=== PATIENT | male | born 1960 | race Caucasian/White ===

== ENCOUNTER 2016-12-21 22:39 | Emergency (ER) | payer OTHER ==
[~2016-12-21] VITALS: Wt 53.5 kg
[2016-12-22] MEDS ORDERED: morphine 10 MG INJ IM ONE
[2016-12-22] MEDS ORDERED: IBUP-1542 PO (00:28)
[2016-12-22] MEDS ORDERED: OXYC-279 PO (00:28)
[2016-12-22 00:47] VITALS: BP 128/74; PULSE 66; RESP 20
--- NOTE | 2016-12-22 01:04 | ERD ---
ER Documentation Chief Complaint Date/Time DATE: 12/22/16 TIME: 01:01 Chief Complaint Left inguinal Pain Hernia HPI 56-year-old man presents with left inguinal hernia pain similar to previous episodes. He denies any precipitating factors today but has had repeated symptoms over the last few months. He states he was supposed to follow-up with Dr. Johnson and was awaiting a call but did not receive any. Patient denies fevers or chills, no hematuria or dysuria, no vomiting or diarrhea, no chest pain or shortness of breath. ROS All systems reviewed and are negative except as per history of present illness. Medications Home Meds Active Scripts Ibuprofen* (Motrin*) 600 Mg Tab, 600 MG PO Q8 for PAIN AND/OR INFLAMMATION, #30 TAB Prov:JAMARI BROWNING MD 12/22/16 Oxycodone HCl/Acetaminophen (Percocet 5-325 mg Tablet) 1 Each Tablet, 1 EACH PO TID for PAIN LEVEL 6-10, #12 TAB Prov:JAMARI BROWNING MD 12/22/16 Allergies Allergies: Coded Allergies: No Known Allergy (Unverified , 12/07/16) PMhx/Soc Inguinal hernia History of Surgery: No Anesthesia Reaction: No Hx Neurological Disorder: No Hx Respiratory Disorders: No Hx Cardiac Disorders: No Hx Psychiatric Problems: No Hx Miscellaneous Medical Probl: No Hx Alcohol Use: No Hx Substance Use: No Hx Tobacco Use: No Smoking Status: Smoker,current status unk FmHx Family History: No diabetes Physical Exam Vitals Vital Signs Date Time Temp Pulse Resp B/P Pulse Ox O2 Delivery O2 Flow Rate FiO2 12/22/16 00:47 66 20 128/74 99 12/21/16 22:50 98.5 94 20 141/74 99 Physical Exam GENERAL: Well-developed, well-nourished, well-hydrated, moderate discomfort, afebrile HEENT: Moist mucous membranes, pink conjunctiva, no cervical spine tenderness or step-off deformities, no goiter, no jaundice or icterus, extraocular movements intact without pain. No submandibular induration, and no pharyngeal erythema NEURO: Alert and oriented 3, cranial nerves II through XII intact bilaterally, pupils equal round reactive to light, no focal deficits or facial asymmetry, sensation intact distally Strength 5/5 in upper and lower extremities bilaterally CARDIAC: Regular rate and rhythm, no murmurs rubs or gallops LUNGS: Clear bilaterally no wheezing crackles or stridor ABDOMEN: Soft nontender, no guarding, no rigidity, no rebound, no psoas sign no obturator sign. There is a palm sized left inguinal hernia which is soft and minimally tender to touch, no skin erythema or hematoma noted. It is reducible to palpation. SKIN: Warm and dry to touch, no abrasions, contusions, or hematomas, no lacerations, no ecchymosis, no target lesions, and without ulcers EXTREMITIES: No clubbing cyanosis or edema, calves are bilaterally symmetrical, no Homans sign, no popliteal cord sign. Distal pulses equal and bilateral PSYCH: Normal affect without agitation or irritability Results 24 hrs Current Medications Medications (Trade) Dose Ordered Sig/Collins Route PRN Reason Start Time Stop Time Status Last Admin Dose Admin Morphine Sulfate (morphine) 4 mg ONCE ONCE IM 12/22/16 00:00 12/22/16 00:01 DC 12/21/16 23:35 Procedures/MDM I administered morphine 4 mg IM 1 with good control of pain. Surgical consultation was obtained with Dr. Johnson. I spoke to him regarding the patient's presentation and symptomatology he recommended outpatient management and kindly agreed to see the patient in his office in about 1 week. Patient's exam was repeated by me and remained benign, pain is 0/10 Differential diagnoses considered, included but not limited to acute coronary syndrome, pulmonary embolism, aortic dissection, abdominal aortic aneurysm, sepsis, stroke, meningitis, encephalitis, pneumonia, appendicitis, cholecystitis , bowel obstruction, pyelonephritis, nephrolithiasis, cystitis, as well as metabolic, hematologic, and electrolyte abnormalities. As well as abscess, cellulitis, fractures, and dislocations. Patient feels much better at this time, and vital signs are normal, symptoms have improved. I did give strict instructions to return to the ED if symptoms continue or worsen, patient will otherwise follow-up with primary care physician. Patient understood instructions and agreed to plan. Disclaimer: Inadvertent spelling and grammatical errors are likely due to EHR/ dictation software use and do not reflect on the overall quality of patient care. Also, please note that the electronic time recorded on this note does not necessarily reflect the actual time of the patient encounter. Departure Diagnosis: Primary Impression: Inguinal hernia Obstruction and gangrene presence: without obstruction or gangrene Laterality : unilateral Recurrence: recurrent Qualified Code: K40.91 - Unilateral recurrent inguinal hernia without obstruction or gangrene Condition: Good Patient Instructions: Hernia (Inguinal, Ventral, Umbilical) Referrals: EDUARDO JOHNSON MD, DAVID MD Dec 22, 2016 01:04
== END 2016-12-22 00:47 | disposition home or self-care (01) ==
LOC: E/R 22:39
DX: K40.91 Unilateral inguinal hernia, without obstruction or gangrene, recurrent (principal); F17.210 Nicotine dependence, cigarettes, uncomplicated
CPT/HCPCS: 96372; 99284; J2270

== ENCOUNTER 2017-01-03 09:08 | Day surgery (SDC) | payer OTHER ==
[~2017-01-03] VITALS: Ht 162.6 cm; Wt 52.0 kg
[2017-01-03] VITALS (15 sets, daily range): BP systolic 88–125; BP diastolic 55–83; PULSE 60–82; RESP 13–27; Ht 162.6 cm; Wt 52.0 kg
[~2017-01-03 09:08] MED LIST: CEFAZOLIN 2 GM/50 ML (PMX) 50 ML IVPB SCH; IBUP-1542 PO; OXYC-279 PO; ROCURONIUM 50 MG INJ ONE; SOD CHLORIDE 0.9% 1,000 ML IV SCH
[2017-01-03] MEDS ORDERED: HYDR-906 PO (09:54)
[2017-01-03] MEDS ORDERED: CEFAZOLIN 1 GM INJ ONE (10:49)
[2017-01-03] MEDS ORDERED: MIDAZOLAM 1 MG/ML 2 ML INJ ONE (10:49)
[2017-01-03] MEDS ORDERED: FENTAnyl 50 MCG/ML VIAL ONE (10:49)
[2017-01-03] MEDS ORDERED: PROPOFOL 20 ML ONE (10:49)
[2017-01-03] MEDS ORDERED: ROPIVACAINE 0.2% 20 ML VIAL ONE (10:50)
[2017-01-03] MEDS ORDERED: BUPIVACAINE 0.25% (MPF) 30 ML INJ ONE (11:05)
[2017-01-03] MEDS ORDERED: DEXAMETHASONE 4 MG/ML 1 ML INJ ONE (11:27)
[2017-01-03] MEDS ORDERED: METOCLOPRAMIDE 10 MG INJ ONE (11:27)
[2017-01-03] MEDS ORDERED: ONDANSETRON 4 MG INJ ONE (11:27)
[2017-01-03] MEDS ORDERED: KETOROLAC 30 MG INJ ONE (11:27)
[2017-01-03] MEDS ORDERED: BUPIVACAINE 0.25% (MPF) 30 ML INJ INJ ONE (11:37)
[2017-01-03] MEDS ORDERED: POLYMYXIN/BACITRACIN 1L IRRIG IRR ONE (11:37)
[2017-01-03] MEDS ORDERED: SUGAMMADEX SODIUM 200 MG/2 ML VIAL IV ONE (12:00)
--- NOTE | 2017-01-03 12:17 | SIPON ---
Date/Time of Note Date/Time of Note DATE: 01/03/17 TIME: 12:02 Operative Report Preoperative Diagnosis [facility] Postoperative Diagnosis [facility] Operation/Procedure Performed 1. open left inguinal hernia repair with medium ultrapro hernia system mesh 2. therapeutic injection of subcutaneous marcaine cpt code 91206 Surgeon see signature line animal care assistant none Anesthesia: general Estimated blood loss: 0 - 10 ml's Transfusion Required none Specimen none Grafts/Implants none Complications none Won MESA Jan 03, 2017 12:16
[2017-01-03] MEDS ORDERED: morphine (1 MG/ML) 10ML SYRINGE IV PRN ×3 (12:30)
[2017-01-03] MEDS ORDERED: ONDANSETRON 4 MG INJ IV PRN (12:30)
[2017-01-03] MEDS ORDERED: DIPHENHYDRAMINE 50 MG INJ IV PRN (12:30)
[2017-01-03] MEDS ORDERED: hydrALAzine 20 MG INJ IV PRN (12:30)
[2017-01-03] MEDS ORDERED: LABETALOL HCL 20MG INJ IV PRN (12:30)
[2017-01-03] MEDS ORDERED: EPHEDrine SULFATE 50 MG/5 ML SYG IV PRN (12:30)
[2017-01-03] MEDS ORDERED: MEPERIDINE 25 MG INJ IV PRN (12:30)
[2017-01-03] MEDS ORDERED: HYDROCODONE/APAP (5/325) TAB PO ONE (12:30)
[2017-01-03] MEDS ORDERED: FENTAnyl 50 MCG/ML VIAL IV PRN ×3 (12:30)
--- NOTE | 2017-01-03 13:12 | OPR ---
DATE OF OPERATION: 01/03/2017 INDICATION: This is a 56-year-old male with a left inguinal hernia. He requested surgical repair. Risks, alternatives, benefits, and personnel were discussed with the patient. The patient expresses understanding and consents to the operation. PREOPERATIVE DIAGNOSIS: Incarcerated left inguinal hernia. POSTOPERATIVE DIAGNOSIS: Incarcerated left inguinal hernia. OPERATION PERFORMED: 1. Open incarcerated left inguinal hernia repair with medium- sized Ultrapro hernia system mesh. 2. Therapeutic subcutaneous Marcaine injection. SURGEON: Geraldine Julian MD. SPECIMEN: Specimen is none. COMPLICATIONS: None. ESTIMATED BLOOD LOSS: 5 cc. OPERATIVE PROCEDURE: Patient was taken to the OR, and prepped and draped in usual sterile fashion. Surgical time out was performed. IV antibiotics were given. Left inguinal oblique incision was made with a 10 blade. Dissection cautery was carried down to the external oblique fascia. The external oblique fascia was opened up with a 15 blade. This incision was extended medially, inferiorly, laterally, superiorly with Metzenbaum scissors. The cord structures identified and encircled with a Felton drain. An indirect hernia was identified and manually reduced. This space was bolstered with disk portion of the Ultrapro hernia system mesh. This was secured in place with a running 0 Prolene from the pubic tubercle along the shelving edge of the inguinal ligament, superiorly to the internal oblique. This was secured with interrupted 3-0 Vicryl. Onlay mesh was secured in a similar fashion with a running 0 Prolene for the pubic tubercle. Straps were created and reapproximated around the cord structures to recreate the inguinal ring with interrupted 0 Prolene. The onlay mesh was secured to the internal oblique with interrupted 3-0 Vicryl. External oblique fascia was closed with a running 3-0 Vicryl. Jaylan's fascia was closed with interrupted 3-0 Vicryl. Skin was closed using skin lindsey. Therapeutic subcutaneous Marcaine was injected throughout the incision site. Dry dressings were applied. Dictated By: Zara Cazares /nanette/laury /Document#: [id number]
--- NOTE | 2017-01-03 16:38 | RADRPT ---
Vent Rate: 71 bpm RR Interval: 0 msec ND Interval: 164 msec QRS Duration: 88 msec QT Interval: 358 msec QTC Interval: 389 msec P-R-T [place]: 59 - 80 - 71 degrees Normal sinus rhythm Normal ECG Electronically Signed By: Elan Pope [id number]
--- NOTE | 2017-01-06 07:50 | RADRPT ---
PROCEDURE: Chest Radiograph. CLINICAL INDICATION: Preop TECHNIQUE: Single frontal chest radiograph. COMPARISON: None available FINDINGS: The cardiomediastinal silhouette is within normal limits. There is symmetric rounded opacities in t he lung bases likely representing nipple shadows. No infiltrate or effusion is seen. The bones a re intact. IMPRESSION: 1. Symmetric rounded opacities in the lung bases likely representing nipple shadows. This can be fu rther evaluated with repeat chest radiograph with nipple markers if clinically indicated. 2. No evidence of acute cardiopulmonary disease. RPTAT: KK .Terrance Baptiste MD, MD Date Time Electronically viewed and signed by .Terrance Baptiste MD, on 01/03/2017 09:41 .B/
== END 2017-01-03 14:20 | disposition home or self-care (01) ==
LOC: SDS 09:08
PROVIDERS: ATTEND Surgery
DX: K40.30 Unilateral inguinal hernia, with obstruction, without gangrene, not specified as recurrent (principal); F17.200 Nicotine dependence, unspecified, uncomplicated
CPT/HCPCS: 49507; 71010; 93005; C1781; J0690; J1100; J1885; J2250; J2405; J2765; J2795; J3010